=== PATIENT | female | born 1950 | race Caucasian/White ===

== ENCOUNTER → 2021-07-27 | Outpatient (CLI) | payer MEDICARE | END | disposition home or self-care (01) | LOC: EDBD 14:00 → LAB SHORT 14:00 | DX: Z48.817 Encounter for surgical aftercare following surgery on the skin and subcutaneous tissue (principal); L08.9 Local infection of the skin and subcutaneous tissue, unspecified; L21.8 Other seborrheic dermatitis; Z86.14 Personal history of Methicillin resistant Staphylococcus aureus infection | CPT/HCPCS: 87070; 87077; 87186; 87205 ==